=== PATIENT | male | born 1955 | race Caucasian/White ===

== ENCOUNTER → 2023-11-05 07:17 | Outpatient (REF) | payer MEDICARE, OTHER, SELFPAY | LOC: RAD 07:17 | PROVIDERS: ATTENDING PHYSICIAN Family Medicine | DX: Z13.6 Encounter for screening for cardiovascular disorders (principal); Z82.49 Family history of ischemic heart disease and other diseases of the circulatory system | CPT/HCPCS: 76770 ==